=== PATIENT | female | born 1965 | race Caucasian/White ===

== ENCOUNTER 2021-01-07 18:16 | Emergency (ER) | payer OTHER ==
[2021-01-07] MEDS ORDERED: Ondansetron 4 MG/2 ML SDV IVPUSH ONE ×2 (19:19→19:54)
[2021-01-07] MEDS ORDERED: Amoxicillin/Clavulanate K 875-125 MG Tab ONE (21:00)
--- NOTE | 2021-01-07 22:25 | EDM.PDOC ---
ED HPI GENERAL MEDICAL PROBLEM - General Chief Complaint: Neurological Problem Stated Complaint: convulsions Time Seen by Provider: 01/07/21 18:50 Source of Information: Reports: Patient, EMS History Limitations: Reports: No Limitations - History of Present Illness INITIAL COMMENTS - FREE TEXT/NARRATIVE: 55-year-old male presents to the ED via EMS secondary to a seizure that lasted approximately 60 to 90 seconds described as a tonic-clonic type seizure with a approximately 5-minute postictal. Patient has been having dizziness and lightheadedness for the last few months. Patient states that she had a seizure in April of this year that lasted approximately 15 seconds with no postictal state. Patient states that her she had a traumatic fall when the seizure occurred because she had a feeling of being lightheaded and near syncope prior and she told her that she felt like she was going to pass out. Patient does not remember the episode. Patient denies biting her tongue and patient is always incontinent of urine. Patient denies chest pain, shortness of breath trauma, nausea vomiting, constipation/diarrhea, blood on stool dark tarry stool, changes in urine color smell frequency, no difficulty swallowing no swollen painful joints no rashes no changes to vision no other neurological symptoms. Bilateral Arm Pain Score (Numeric/FACES): 3 - Related Data Allergies Allergy/AdvReac Type Severity Reaction Status Date / Time No Known Allergies Allergy Verified 01/07/21 19:47 Home Meds: Home Meds Pantoprazole Sodium [Protonix] 20 mg PO DAILY 01/07/21 [History] Past Medical History Respiratory History: Reports: SOB Other Respiratory History: pt reports chronic SOB with wt gain Musculoskeletal History: Reports: Other (See Below) Other Musculoskeletal History: sarcoidosis, tumor removed from thigh - Past Surgical History Other Musculoskeletal Surgeries/Procedures:: chronic pain from sarcoidosis Social & Family History - Recreational Drug Use Recreational Drug Use: No ED ROS GENERAL - Review of Systems Review Of Systems: Comprehensive ROS is negative, except as noted in HPI. ED EXAM, NEURO - Physical Exam Exam: See Below Text/Narrative:: 35-year-old female found in [address]. Patient has semifowler position on stretcher. No apparent distress. ABCs intact. Speaking in full sentences. Alert and oriented 3/3 GCS 4 5 6. No obvious trauma noted Exam Limited By: No Limitations General Appearance: Alert, WD/WN, No Apparent Distress Eye Exam: Bilateral Eye: EOMI, PERRL Ears: Hearing Grossly Normal, Other (Patient has mastoid effusion on CT, no pain upon palpation of the mastoid area right ear canal normal, tympanic membranes has a slightly cloudy serous effusion no erythema, or bulging) Nose: Normal Inspection, Normal Mucosa, No Blood Throat/Mouth: Normal Inspection, Normal Lips, Normal Teeth, Normal Gums, Normal Oropharynx, Normal Voice, No Airway Compromise Head Exam: Atraumatic, Normocephalic Neck: Normal Inspection, Supple, Non-Tender, Full Range of Motion, Other (Trachea midline, no subcutaneous air). No: Lymphadenopathy (R), Lymphadenop athy (L), Tender Lateral, Tender Midline Respiratory/Chest: No Respiratory Distress, Lungs Clear, Normal Breath Sounds, No Accessory Muscle Use, Chest Non-Tender Cardiovascular: Normal Peripheral Pulses, Regular Rate, Rhythm, No Edema, No Gallop, No JVD, No Murmur, No Rub GI/Abdominal: Soft, Non-Tender, No Organomegaly, No Distention, No Mass (Female) Exam: Deferred Rectal (Female) Exam: Deferred Neurological: Alert, Normal Mood/Affect, Normal Dorsiflexion, CN II-XII Intact, Normal Plantar Flexion, Normal Gait, Normal Reflexes, No Motor/Sensory Deficits, Oriented x 3 DTR: 1+: Patella (R), Patella (L), 2+: Bicep (R), Bicep (L), Tricep (R), Tricep (L), Achilles (R), Achilles (L) Back Exam: Normal Inspection, Full Range of Motion. No: CVA Tenderness (R), CVA Tenderness (L) Extremities: Normal Inspection, Normal Range of Motion, Non-Tender, No Pedal Edema, Normal Capillary Refill Psychiatric: Normal Affect, Normal Mood Skin Exam: Warm, Dry, Intact, Normal Color, No Rash #1 Interpretation EKG Date: 01/07/21 (Normal sinus rhythm with large left bundle branch block unable to interpret for STEMI status will be followed up with troponin) Course - Vital Signs Last Recorded V/S: Last Vital Signs Temp Pulse 62 01/07/21 19:48 Resp 20 01/07/21 19:48 BP 168/79 H 01/07/21 19:48 Pulse Ox 95 01/07/21 19:48 - Orders/Labs/Meds Orders: Active Orders 24 hr Category Date Time Status Head wo Cont [CT] Stat Exams 01/07/21 19:06 Taken EKG 12 Lead [EK] Routine Ther 01/07/21 19:05 Ordered Labs: Laboratory Tests 01/07/21 01/07/21 01/07/21 Range/Units 19:05 19:06 19:10 WBC 8.2 (4.0-11.0) K/uL RBC 4.72 (3.80-5.80) M/uL Hgb 14.1 (11.5-16.5) g/dL Hct 40.9 (37.0-47.0) % MCV 87 (76-96) fL MCH 29.9 (27.0-32.0) pg MCHC 34.5 (31.0-35.0) g/dL RDW 13.6 (11.0-16.0) % Plt Count 226 (150-500) K/uL MPV 10.6 H (6.0-10.0) fL Neut % (Auto) 74.5 H (45.0-70.0) % Lymph % (Auto) 13.8 L (20.0-40.0) % Jasper % (Auto) 9.8 (3.0-10.0) % Eos % (Auto) 1.7 (1.0-5.0) % Baso % (Auto) 0.2 (0.0-0.5) % Neut # (Auto) 6.09 (2.00-7.50) K/uL Lymph # (Auto) 1.13 L (1.50-4.00) K/uL Jasper # (Auto) 0.80 (0.20-0.80) K/uL Eos # (Auto) 0.14 (0.04-0.40) K/uL Baso # (Auto) 0.02 (0.02-0.10) K/uL Sodium (136-145) mmol/L Potassium (3.5-5.1) mmol/L Chloride (98-107) mmol/L Carbon Dioxide (21.0-32.0) mmol/L Anion Gap (5.0-15.0) mmol/L BUN (8-26) mg/dL Creatinine (0.55-1.02) mg/dL Est Cr Clr Drug Dosing mL/min Estimated GFR (MDRD) (>60) MLS/MIN BUN/Creatinine Ratio (6-25) Glucose (74-100) mg/dL Calcium (8.5-10.1) mg/dL Troponin I (0.000-0.060) ng/mL Urine Color Yellow Urine Appearance Clear (CLEAR) Urine pH 6.0 (5.0-8.0) Ur Specific [place] >= 1.030 (1.003-1.030) Urine Protein Negative (NEGATIVE) mg/dL Urine Glucose (UA) Negative (NEGATIVE) mg/dL Urine Ketones 15 H (NEGATIVE) mg/dL Urine Occult Blood Negative (NEGATIVE) Urine Nitrite Negative (NEGATIVE) Urine Bilirubin Negative (NEGATIVE) Urine Urobilinogen 0.2 (0.2-1.0) E.U./dL Ur Leukocyte Esterase Negative (NEGATIVE) Urine Opiates Screen Negative (NEGATIVE) Ur Oxycodone Screen Negative (NEGATIVE) Urine Methadone Screen Negative (NEGATIVE) Ur Barbiturates Screen Negative (NEGATIVE) Ur Tricyclics Screen Negative (NEGATIVE) Ur Phencyclidine Scrn Negative (NEGATIVE) Ur Amphetamine Screen Negative (NEGATIVE) U Methamphetamines Scrn Negative (NEGATIVE) Urine MDMA Screen Negative (NEGATIVE) U Benzodiazepines Scrn Negative (NEGATIVE) U Cocaine Metab Screen Negative (NEGATIVE) U Marijuana (THC) Screen Negative (NEGATIVE) Ethyl Alcohol (<3.0) mg/dL SARS CoV-2 RNA Rapid SRIKANTH 01/07/21 01/07/21 01/07/21 Range/Units 19:10 19:10 19:53 WBC (4.0-11.0) K/uL RBC (3.80-5.80) M/uL Hgb (11.5-16.5) g/dL Hct (37.0-47.0) % MCV (76-96) fL MCH (27.0-32.0) pg MCHC (31.0-35.0) g/dL RDW (11.0-16.0) % Plt Count (150-500) K/uL MPV (6.0-10.0) fL Neut % (Auto) (45.0-70.0) % Lymph % (Auto) (20.0-40.0) % Jasper % (Auto) (3.0-10.0) % Eos % (Auto) (1.0-5.0) % Baso % (Auto) (0.0-0.5) % Neut # (Auto) (2.00-7.50) K/uL Lymph # (Auto) (1.50-4.00) K/uL Jasper # (Auto) (0.20-0.80) K/uL Eos # (Auto) (0.04-0.40) K/uL Baso # (Auto) (0.02-0.10) K/uL Sodium 138 (136-145) mmol/L Potassium 3.6 (3.5-5.1) mmol/L Chloride 103 (98-107) mmol/L Carbon Dioxide 25.4 (21.0-32.0) mmol/L Anion Gap 13.2 (5.0-15.0) mmol/L BUN 13 (8-26) mg/dL Creatinine 1.18 H (0.55-1.02) mg/dL Est Cr Clr Drug Dosing 48.47 mL/min Estimated GFR (MDRD) 48 L (>60) MLS/MIN BUN/Creatinine Ratio 11.0 (6-25) Glucose 120 H (74-100) mg/dL Calcium 8.8 (8.5-10.1) mg/dL Troponin I < 0.017 (0.000-0.060) ng/mL Urine Color Urine Appearance (CLEAR) Urine pH (5.0-8.0) Ur Specific [place] (1.003-1.030) Urine Protein (NEGATIVE) mg/dL Urine Glucose (UA) (NEGATIVE) mg/dL Urine Ketones (NEGATIVE) mg/dL Urine Occult Blood (NEGATIVE) Urine Nitrite (NEGATIVE) Urine Bilirubin (NEGATIVE) Urine Urobilinogen (0.2-1.0) E.U./dL Ur Leukocyte Esterase (NEGATIVE) Urine Opiates Screen (NEGATIVE) Ur Oxycodone Screen (NEGATIVE) Urine Methadone Screen (NEGATIVE) Ur Barbiturates Screen (NEGATIVE) Ur Tricyclics Screen (NEGATIVE) Ur Phencyclidine Scrn (NEGATIVE) Ur Amphetamine Screen (NEGATIVE) U Methamphetamines Scrn (NEGATIVE) Urine MDMA Screen (NEGATIVE) U Benzodiazepines Scrn (NEGATIVE) U Cocaine Metab Screen (NEGATIVE) U Marijuana (THC) Screen (NEGATIVE) Ethyl Alcohol < 0.0 L (<3.0) mg/dL SARS CoV-2 RNA Rapid SRIKANTH Negative Meds: Medications Discontinued Medications Generic Name Dose Route Start Last Admin Trade Name James PRN Reason Stop Dose Admin Ondansetron HCl 4 mg 01/07/21 19:19 01/07/21 19:02 Ondansetron 4 Mg/2 Ml Sdv IVPUSH 01/07/21 19:20 4 mg ONETIME ONE Administration Ondansetron HCl 4 mg 01/07/21 19:54 01/07/21 19:30 Ondansetron 4 Mg/2 Ml Sdv IVPUSH 01/07/21 19:55 4 mg ONETIME ONE Administration Departure - Departure Time of Disposition: 21:18 Disposition: Home, Self-Care 01 Condition: Good Clinical Impression: First time seizure - Discharge Information *PRESCRIPTION DRUG MONITORING PROGRAM REVIEWED*: No *COPY OF PRESCRIPTION DRUG MONITORING REPORT IN PATIENT ARIC: No Instructions: Otitis Media, Adult, [id number], Seizure, Adult Referrals: PCP,None [Primary Care Provider] - Forms: ED Department Discharge Care Plan Goals: Follow up with neurology and no driving until seizure free for three months. Follow up with your primary care provider. Take Augmentin 875mg by mouth twice daily for ear infection. Sepsis Event Note (ED) - Evaluation Sepsis Screening Result: No Definite Risk - Focused Exam Vital Signs: Vital Signs Pulse Resp BP Pulse Ox 01/07/21 19:48 62 20 168/79 H 95 01/07/21 18:50 65 18 172/111 H 94 L - Problem List & Annotations (1) First time seizure SNOMED Code(s): 72159041 Code(s): R56.9 - UNSPECIFIED CONVULSIONS Status: Acute - Problem List Review Problem List Initiated/Reviewed/Updated: Yes - My Orders Last 24 Hours: My Active Orders 01/07/21 19:05 EKG 12 Lead [EK] Routine 01/07/21 19:06 Head wo Cont [CT] Stat - Assessment/Plan Last 24 Hours: My Active Orders 01/07/21 19:05 EKG 12 Lead [EK] Routine 01/07/21 19:06 Head wo Cont [CT] Stat Assessment:: 1. Seizure activity 2. Otitis media right ear Plan: ABC, history, exam, labs, EKG, CT head, Zofran IV, consult with Jerrod eaton emergency MD, consult with [place] neurology Dr. Swenson, prescription given for Augmentin for otitis media right ear patient advised to follow-up with neurology, primary care provider, do not drive until seizure-free for 3 months or cleared by neurology. Based on story and consultation with neurology for seizure in April lasting approximately 15 seconds is more likely a syncopal episode due to length and lack of postictal state. Based upon story for this episode is consistent with a tonic-clonic type seizure which requires notification of not driving, neurological follow-up, as discussed with patient. All questions were answered to patient satisfaction, patient understood and agreed to treatment plan, patient was discharged in stable condition
--- NOTE | 2021-01-08 10:23 | CT ---
DATE OF SERVICE: 01/07/2021 CLINICAL DATA: Seizure. UNENHANCED BRAIN CT: No priors. There is mild bifrontal atrophy. No masses or mass effect. No intracranial hemorrhage. No evidence of acute or subacute infract. No osseous abnormalities. [id number] MTDD
== END 2021-01-07 21:18 | disposition home or self-care (01) ==
LOC: LB.ED 18:16
DX: R56.9 Unspecified convulsions (principal); Z79.899 Other long term (current) drug therapy; Z20.822 Contact with and (suspected) exposure to COVID-19
CPT/HCPCS: 36415; 70450; 80048; 80307; 81003; 84484; 85025; 93005; 96374; 99285-25; A0425; A0429; A9270-GY; J2405; U0002